=== PATIENT | male | born 1975 | race Caucasian/White ===

== ENCOUNTER 2018-09-03 17:31 | Emergency (ER) | payer OTHER ==
[2018-09-03] MEDS ORDERED: Famotidine/PF 20 mg/2ml Vial ONE (17:48)
[2018-09-03] MEDS ORDERED: methylPREDNISolone Sod Succ/PF 125 MG/2 ML VIAL ONE (17:48)
[2018-09-03] MEDS ORDERED: diphenhydrAMINE 50 MG/ML VIAL ONE (17:48)
[2018-09-03 17:57] LABS: #Basophils 0.2 thou/uL (0.0-0.2); #Eosinphils 0.1 thou/uL (0.0-0.7); #Lymphocytes 5.1 thou/uL (1.20-3.40); #Monocytes 1.5 thou/uL (0.11-0.59); #Neutrophils 8.2 thou/uL (1.40-6.50); %Basophils 1.3 % (0.0-1.0); %Eosinophils 0.8 % (0.0-10.0); %Lymphocytes 33.5 % (21.0-51.0); %Monocytes 10.1 % (0.0-10.0); %Neutrophils 54.3 % (42.0-75.0); Hemoglobin 15.8 g/dL (14.0-18.0); Mean Corpuscular HGB CONC 31.9 g/dL (32.0-36.0); Mean Corpuscular Hemoglobin 28.2 pg (27.0-31.0); Mean Corpuscular Volume 88.5 fL (78.0-98.0); Mean Platelet Volume 7.4 fL (7.4-10.4); Platelet Count 245 thou/uL (130-400); RBC Distribution Width 12.2 % (11.5-14.5); Red Blood Cell (RBC) Count 5.59 mill/uL (4.70-6.10); White Blood Cell (WBC) Count 15.1 thou/uL (4.8-10.8)
[2018-09-03] MEDS ORDERED: EPINEPHrine 1 MG/ML AMP ONE (18:05)
[2018-09-03 18:06] LABS: INR-International Normal Ratio 1.2; Prothrombin Time 15.6 SEC (12.0-14.7)
[2018-09-03 18:07] LABS: PTT 77.3 SEC (22.9-36.1)
[2018-09-03 18:11] LABS: ALT (SGPT) 21 U/L (8-55); AST (SGOT) 39 U/L (5-34); Albumin 4.7 g/dL (3.5-5.0); Alkaline Phosphatase 44 U/L (40-150); Bilirubin, Direct 0.5 mg/dL (0.1-0.3); Bilirubin, Total 1.3 mg/dL (0.2-1.2); Protein, Total 8.2 g/dL (6.0-8.3)
[2018-09-03 18:12] LABS: Anion Gap 30 mmol/L (10-20); BUN (Urea Nitrogen) 13 mg/dL (8.9-20.6); CK (CPK) 182 U/L (30-200); Calc. Creatinine Clearance 0 mL/min (70-130); Calcium 9.7 mg/dL (7.8-10.44); Carbon Dioxide 12 mmol/L (22-29); Chloride 104 mmol/L (98-107); Estimated GFR-MDRD 78; Glucose 131 mg/dL (70-105); Potassium 3.1 mmol/L (3.5-5.1); Sodium 143 mmol/L (136-145)
== END 2018-09-03 18:58 | disposition short-term general hospital (02) ==
LOC: NAV ERS 17:31
DX: T63.441A Toxic effect of venom of bees, accidental (unintentional), initial encounter (principal)
CPT/HCPCS: 80048; 80076; 82550; 85025; 85610; 85730; 93005; 94760; 96372; 96374; 96375; J0171; J1200; J2930; S0028